=== PATIENT | male | born 1990 | race African-American/Black ===

== ENCOUNTER 2016-09-17 08:55 | Emergency (ER) | payer SELFPAY ==
[~2016-09-17] VITALS: Ht 185.4 cm; Wt 86.4 kg
[~2016-09-17 08:55] MED LIST: AMOX875T71 PO; AUGM875 PO; LORT5TAB PO; MMW SS
[2016-09-17 08:57] VITALS: BP 146/82; PULSE 95; RESP 16; TEMP 101.9; O2SAT 99
[2016-09-17] MEDS ORDERED: ACETAMINOPHEN 325 MG TAB PO ONE (10:15)
[2016-09-17] MEDS ORDERED: PENICILLIN G BENZATHINE 1,200,000 UNITS/2 ML SYRINGE IM ONE (10:15)
[2016-09-17] MEDS ORDERED: PRED20 PO (10:27)
--- NOTE | 2016-09-17 10:28 | PD ---
HPI Chief Complaint: ENT Complaint Time Seen by Provider: 10:08 Travel History International Travel<30 days: No Contact w/Intl Traveler<30days: No Traveled to known affect area: No History of Present Illness HPI Patient is a 26-year-old male presents emergency Department with sore throat and swelling of the tonsils for the past 24 hours. Patient states he's had strep throat before and this feels similar albeit this is somewhat worse. Also endorses some fever. Endorses a dry cough. Denies any intervention prior to arrival. PFSH Past Medical History Medical History: Denies Significant Hx Asthma: Yes Autoimmune Disease: No Cancer: No Cardiovascular Problems: No Chemotherapy: No COPD: No Diabetes: No Endocrine: No Genitourinary: No Immune Disorder: No Implanted Vascular Access Dvce: No Musculoskeletal: No Neurologic: No Psychiatric: No Reproductive: No Respiratory: Yes Radiation Therapy: No Sleep Apnea: No Thyroid Disease: No Tetanus Vaccination: < 5 Years Past Surgical History Surgical History: No Previous Surgery Other Surgery: No Social History Alcohol Use: No Tobacco Use: Yes Substance Use: No Allergies-Medications (Allergen,Severity, Reaction): Coded Allergies: No Known Allergies (Verified , 09/17/16) Reported Meds & Prescriptions Reported Meds & Active Scripts Active Prednisone 20 Mg Tab 60 Mg PO DAILY 5 Days Physical Exam Narrative GENERAL: WD/WN in nad. SKIN: Warm and dry. HEAD: Normocephalic. EYES: No scleral icterus. No injection or drainage. ENT: Bilateral tonsilar enlargement with purulent tonsils. Uvula midline. No abscess. Tongue normal. Airway patent. NECK: Supple, trachea midline. No JVD or lsmall anterior cervical lymphnodes tender to palpation. CARDIOVASCULAR: Regular rate and rhythm without murmurs, gallops, or rubs. RESPIRATORY: Breath sounds equal bilaterally. No accessory muscle use. GASTROINTESTINAL: Abdomen soft, non-tender, nondistended. MUSCULOSKELETAL: No cyanosis, or edema. BACK: Nontender without obvious deformity. No CVA tenderness. Data Data Last Documented VS Vital Signs Date Time Temp Pulse Resp B/P Pulse Ox O2 Delivery O2 Flow Rate FiO2 09/17/16 08:57 101.9 95 16 146/82 99 Orders Penicillin G Benzathine Inj (Bicillin L- (09/17/16 10:15) Acetaminophen (Tylenol) (1/22/17 10:15) [facility] Medical Decision Making Medical Screen Exam Complete: Yes Emergency Medical Condition: Yes Medical Record Reviewed: Yes Differential Diagnosis Strep throat, URI, pharyngitis, pna unlikely. Narrative Course Roomed in ED, prescribed PCN. Also place on steroids for symptomatic management. Discussed follow up with ENT for consideration of removal given multiple presentation to er for same. Diagnosis Primary Impression: Streptococcal pharyngitis Referrals: Massimo Su MD Additional Instructions: Follow-up with Dr. Su for consideration of tonsillectomy. Med/Other Pt SpecificInfo: Prescription(s) given Scripts Prednisone 20 Mg Tab60 Mg PO DAILY 5 Days Ref 0 Prov:Zachary Gao MD 09/17/16 Disposition: 01 DISCHARGE HOME Condition: Stable Zachary Gao MD Sep 17, 2016 10:27
== END 2016-09-17 10:55 | disposition home or self-care (01) ==
LOC: NEPA 08:55
DX: J02.0 Streptococcal pharyngitis (principal)
CPT/HCPCS: 96372; 99283; J0561

== ENCOUNTER 2018-02-14 15:21 | Emergency (ER) | payer SELFPAY ==
[~2018-02-14] VITALS: Ht 185.4 cm; Wt 122.9 kg
[~2018-02-14 15:21] MED LIST changes: -AMOX875T71 PO; -AUGM875 PO; -LORT5TAB PO; -MMW SS; +PRED20 PO
[2018-02-14 15:32] VITALS: BP 173/87; PULSE 86; RESP 18; TEMP 97.8; O2SAT 96
--- NOTE | 2018-02-14 15:39 | PD ---
HPI Chief Complaint: Laceration/Skin Injury Time Seen by Provider: 15:32 Travel History International Travel<30 days: No Contact w/Intl Traveler<30days: No Traveled to known affect area: No History of Present Illness HPI 27-year-old male with no significant medical history presents emergency department for evaluation of a superficial laceration to his right fifth digit sustained on glass in his friend's car. Patient is right-handed. He denies any limitations in range of motion. He has no significant pain. He is requesting a work note. He is uncertain of his tetanus status. PFSH Past Medical History Asthma: Yes Autoimmune Disease: No Cancer: No Cardiovascular Problems: No Chemotherapy: No COPD: No Diabetes: No Endocrine: No Genitourinary: No Immune Disorder: No Implanted Vascular Access Dvce: No Musculoskeletal: No Neurologic: No Psychiatric: No Reproductive: No Respiratory: Yes Radiation Therapy: No Sleep Apnea: No Thyroid Disease: No Influenza Vaccination: No Past Surgical History Surgical History: No Previous Surgery Other Surgery: No Social History Alcohol Use: Yes ("FEW TIMES PER MONTH") Tobacco Use: Yes (/ PPD) Substance Use: No Allergies-Medications (Allergen,Severity, Reaction): Coded Allergies: No Known Allergies (Verified , 09/17/16) Reported Meds & Prescriptions Reported Meds & Active Scripts Active No Active Prescriptions or Reported Medications Review of Systems Except as stated in HPI: all other systems reviewed are Neg Physical Exam Narrative GENERAL: Well-nourished, well-developed male patient, ambulatory and in no acute distress SKIN: Focused skin assessment warm/dry. 1 and half centimeter superficial laceration on the dorsal medial aspect of the right fifth digit. It is well approximated. Bleeding is controlled. HEAD: Normocephalic. EYES: No scleral icterus. No injection or drainage. NECK: Supple, trachea midline. No JVD or lymphadenopathy. MUSCULOSKELETAL: No cyanosis, or edema. Patient has full flexion-extension of the affected digit. Cap refill within normal limits. Sensation intact distal affected digit. Data Data Last Documented VS Vital Signs Date Time Temp Pulse Resp B/P (MAP) Pulse Ox O2 Delivery O2 Flow Rate FiO2 02/14/18 15:32 97.8 86 18 173/87 (115) 96 MDM Medical Decision Making Medical Screen Exam Complete: Yes Emergency Medical Condition: Yes Medical Record Reviewed: Yes Differential Diagnosis Laceration superficial versus deep versus abrasion versus avulsion Narrative Course 27-year-old male presents emergency department for evaluation of a laceration to the right fifth digit. This is very superficial laceration. Patient is counseled on care. He is updated on his tetanus. He is encouraged to follow- up outpatient with primary care provider and return immediately with acute worsening symptoms Diagnosis Primary Impression: Laceration of finger of right hand Qualified Codes: S61.216A - Laceration without foreign body of right little finger without damage to nail, initial encounter Referrals: Primary Care Physician Patient Instructions: Acute Wound Care (DC), General Instructions Additional Instructions: Keep the area clean and dry You may shower. Wash with warm soapy water twice a day Cover with a Band-Aid until scab forms Return immediately with acute worsening symptoms Med/Other Pt SpecificInfo: No Meds Exist/No RX given Scripts No Active Prescriptions or Reported Meds Disposition: 01 DISCHARGE HOME Condition: Stable Domonique Santos Feb 14, 2018 15:39
[2018-02-14] MEDS ORDERED: TETANUS/DIPHTHERIA TOXOID ADULT 0.5 ML VIAL IM ONE (15:45)
== END 2018-02-14 15:57 | disposition home or self-care (01) ==
LOC: PHEFT 15:21
DX: S61.216A Laceration without foreign body of right little finger without damage to nail, initial encounter (principal); F17.200 Nicotine dependence, unspecified, uncomplicated; Z23 Encounter for immunization; W25.XXXA Contact with sharp glass, initial encounter; Y92.810 Car as the place of occurrence of the external cause
CPT/HCPCS: 90471; 90714